=== PATIENT | female | born 1950 | race Caucasian/White ===

== ENCOUNTER 2021-10-16 04:02 | Day surgery (SDC) | payer OTHER ==
[2021-10-14 15:00] VITALS: BMI 32.0
[2021-10-16] MEDS ORDERED: DEXAMETHASONE SOD PHOSPHATE 10 MG/1 ML VIAL ONE (07:41)
[2021-10-16] MEDS ORDERED: LIDOCAINE HCL/PF 1% SDV 5ML VIAL ONE (07:41)
[2021-10-16 08:48] VITALS: TEMP 97.8
[2021-10-16] MEDS ORDERED: IOHEXOL 300 MG/ML INFUS..BTL IV ONE (12:18)
[2021-10-16] MEDS ORDERED: DEXAMETHASONE SOD PHOSPHATE 10 MG/1 ML VIAL IVPUSH ONE (12:19)
[2021-10-16] MEDS ORDERED: LIDOCAINE HCL 1% PRESERVATIVE FREE - 30ML VIAL IJ ONE (12:20)
[2021-10-16 13:12] VITALS: BP 143/62; PULSE 60
== END 2021-10-16 13:05 | disposition home or self-care (01) ==
LOC: JASU-SURG 04:02
PROVIDERS: ATTEND Pain Medicine Pain Medicine
PROC: 3E0R33Z Introduction of Anti-inflammatory into Spinal Canal, Percutaneous Approach (ICD-10-PCS; 2021-10-16)
PROC: B01BYZZ Fluoroscopy of Spinal Cord using Other Contrast (ICD-10-PCS; 2021-10-16)
PROC: 3E0R3BZ Introduction of Anesthetic Agent into Spinal Canal, Percutaneous Approach (ICD-10-PCS; principal; 2021-10-16 10:45)
DX: M54.16 Radiculopathy, lumbar region (principal)
CPT/HCPCS: 76000-TC-FY; J1100

== ENCOUNTER 2021-11-13 04:05 | Day surgery (SDC) | payer OTHER ==
[2021-11-10 11:54] VITALS: BMI 32.7
[2021-11-13] MEDS ORDERED: LIDOCAINE HCL 1% PRESERVATIVE FREE - 30ML VIAL IJ ONE ×2 (08:58→08:59)
[2021-11-13] MEDS ORDERED: BUPIVACAINE HCL/PF 0.5% (5MG/ML) 10 ML VIAL IJ ONE ×2 (08:58→08:59)
[2021-11-13] MEDS ORDERED: TRIAMCINOLONE ACETONIDE 40 MG/ML 10 ML VIAL IJ ONE (08:59)
[2021-11-13 09:39] VITALS: BP 147/62; PULSE 54; RESP 20; TEMP 97.8
== END 2021-11-13 09:45 | disposition home or self-care (01) ==
LOC: JASU-SURG 04:05
PROVIDERS: ATTEND Pain Medicine Pain Medicine
PROC: 3E0U3BZ Introduction of Anesthetic Agent into Joints, Percutaneous Approach (ICD-10-PCS; 2021-11-13)
PROC: 3E0U33Z Introduction of Anti-inflammatory into Joints, Percutaneous Approach (ICD-10-PCS; principal; 2021-11-13 08:45)
DX: M53.3 Sacrococcygeal disorders, not elsewhere classified (principal)
CPT/HCPCS: 76000-TC-FY

== ENCOUNTER 2022-01-22 03:57 | Day surgery (SDC) | payer OTHER ==
[2022-01-21 10:13] VITALS: BMI 32.7
[2022-01-22] MEDS ORDERED: LIDOCAINE HCL/PF 1% SDV 5ML VIAL ONE (07:12)
[2022-01-22] MEDS ORDERED: BUPIVACAINE HCL/PF 0.75% 10 ML VIAL ONE (07:12)
[2022-01-22] MEDS ORDERED: LIDOCAINE HCL 1% PRESERVATIVE FREE - 30ML VIAL IJ ONE (08:53)
[2022-01-22] MEDS ORDERED: BUPIVACAINE HCL/PF 0.75% 10 ML VIAL NR ONE (08:55)
[2022-01-22 11:00] VITALS: BP 140/61; PULSE 65; RESP 20; TEMP 97.8
== END 2022-01-22 09:20 | disposition home or self-care (01) ==
LOC: JASU-SURG 03:57
PROVIDERS: ATTEND Pain Medicine Pain Medicine
PROC: BR16YZZ Fluoroscopy of Lumbar Facet Joint(s) using Other Contrast (ICD-10-PCS; 2022-01-22)
PROC: 3E0T3BZ Introduction of Anesthetic Agent into Peripheral Nerves and Plexi, Percutaneous Approach (ICD-10-PCS; principal; 2022-01-22 08:30)
DX: M47.816 Spondylosis without myelopathy or radiculopathy, lumbar region (principal); I10 Essential (primary) hypertension
CPT/HCPCS: 76000-TC-FY

== ENCOUNTER 2022-03-05 04:03 | Day surgery (SDC) | payer OTHER ==
[2022-03-04 11:09] VITALS: BMI 32.5
[2022-03-05] MEDS ORDERED: BUPIVACAINE HCL/PF 0.75% 10 ML VIAL ONE (07:40)
[2022-03-05] MEDS ORDERED: LIDOCAINE HCL/PF 1% SDV 5ML VIAL ONE (07:41)
[2022-03-05 08:54] VITALS: RESP 18
[2022-03-05] MEDS ORDERED: LIDOCAINE HCL 1% PRESERVATIVE FREE - 30ML VIAL IJ ONE (09:28)
[2022-03-05] MEDS ORDERED: BUPIVACAINE HCL/PF 0.75% 10 ML VIAL PNB ONE (09:29)
[2022-03-05 10:10] VITALS: BP 133/56; PULSE 68; TEMP 97.7
== END 2022-03-05 10:16 | disposition home or self-care (01) ==
LOC: JASU-SURG 04:03
PROVIDERS: ATTEND Pain Medicine Pain Medicine
PROC: BR16YZZ Fluoroscopy of Lumbar Facet Joint(s) using Other Contrast (ICD-10-PCS; 2022-03-05)
PROC: 3E0T3BZ Introduction of Anesthetic Agent into Peripheral Nerves and Plexi, Percutaneous Approach (ICD-10-PCS; principal; 2022-03-05 10:15)
DX: M47.816 Spondylosis without myelopathy or radiculopathy, lumbar region (principal)
CPT/HCPCS: 76000-TC-FY

== ENCOUNTER 2022-04-02 04:11 | Day surgery (SDC) | payer OTHER ==
[2022-03-26 08:31] VITALS: BMI 32.5
[~2022-04-02 04:11] MED LIST: BUPIVACAINE HCL/PF 0.75% 10 ML VIAL PNB ONE; LIDOCAINE HCL 1% PRESERVATIVE FREE - 30ML VIAL IJ ONE
[2022-04-02] MEDS ORDERED: LIDOCAINE HCL/PF 2% SDV 5ML VIAL ONE ×2 (07:23→10:10)
[2022-04-02] MEDS ORDERED: LIDOCAINE HCL/PF 1% SDV 5ML VIAL ONE (07:23)
[2022-04-02] MEDS ORDERED: BUPIVACAINE HCL/PF 0.75% 10 ML VIAL ONE (07:23)
[2022-04-02] MEDS ORDERED: DEXAMETHASONE SOD PHOSPHATE 10 MG/1 ML VIAL ONE (07:24)
[2022-04-02 08:41] VITALS: RESP 20
[2022-04-02] MEDS ORDERED: BUPIVACAINE HCL/PF 0.75% 10 ML VIAL PNB ONE ×2 (10:16)
[2022-04-02] MEDS ORDERED: LIDOCAINE HCL 1% PRESERVATIVE FREE - 30ML VIAL IJ ONE (10:17)
[2022-04-02] MEDS ORDERED: DEXAMETHASONE SOD PHOSPHATE 10 MG/1 ML VIAL IVPUSH ONE (10:17)
[2022-04-02 12:36] VITALS: BP 140/80; PULSE 69; TEMP 98
== END 2022-04-02 12:00 | disposition home or self-care (01) ==
LOC: JASU-SURG 04:11
PROVIDERS: ATTEND Pain Medicine Pain Medicine
PROC: BR16YZZ Fluoroscopy of Lumbar Facet Joint(s) using Other Contrast (ICD-10-PCS; 2022-04-02)
PROC: 3E0T3TZ Introduction of Destructive Agent into Peripheral Nerves and Plexi, Percutaneous Approach (ICD-10-PCS; principal; 2022-04-02 10:15)
DX: M47.816 Spondylosis without myelopathy or radiculopathy, lumbar region (principal)
CPT/HCPCS: 76000-TC-FY; J1100

== ENCOUNTER 2022-05-07 04:27 | Day surgery (SDC) | payer OTHER ==
[2022-05-03 14:28] VITALS: BMI 32.5
[2022-05-07] MEDS ORDERED: DEXAMETHASONE SOD PHOSPHATE 10 MG/1 ML VIAL ONE (07:30)
[2022-05-07] MEDS ORDERED: LIDOCAINE HCL/PF 1% SDV 5ML VIAL ONE (07:30)
[2022-05-07] MEDS ORDERED: LIDOCAINE HCL/PF 2% SDV 5ML VIAL ONE (07:30)
[2022-05-07] MEDS ORDERED: BUPIVACAINE HCL/PF 0.75% 10 ML VIAL ONE (07:30)
[2022-05-07 11:31] VITALS: BP 165/51; PULSE 18; RESP 53; TEMP 96.9
== END 2022-05-07 11:43 | disposition home or self-care (01) ==
LOC: JASU-SURG 04:27
PROVIDERS: ATTEND Pain Medicine Pain Medicine
PROC: 005Y3ZZ Destruction of Lumbar Spinal Cord, Percutaneous Approach (ICD-10-PCS; principal; 2022-05-07 10:40)
DX: M47.816 Spondylosis without myelopathy or radiculopathy, lumbar region (principal)
CPT/HCPCS: 76000-TC-FY; J1100

== ENCOUNTER 2024-07-05 07:04 | Day surgery (SDC) | payer OTHER ==
[2024-07-03 10:07] VITALS: BMI 32.9
[2024-07-05] MEDS ORDERED: ACETAMINOPHEN 500 MG TABLET (FP) PO PRN (08:47)
[2024-07-05 10:38] VITALS: TEMP 97.7
[2024-07-05] MEDS: BUPIVACAINE HCL/PF 0.5% (5MG/ML) 10 ML VIAL IJ ONE ×2 (11:45)
[2024-07-05] MEDS: TRIAMCINOLONE ACETONIDE 40 MG/ML 10 ML VIAL IJ ONE ×2 (11:46)
[2024-07-05] MEDS: LIDOCAINE HCL 1% PRESERVATIVE FREE - 30ML VIAL IJ ONE ×2 (11:46)
[2024-07-05] MEDS: IOHEXOL 180 MG/1 ML ML IJ ONE ×2 (11:46)
[2024-07-05] MEDS: DEXAMETHASONE SOD PHOSPHATE 10 MG/1 ML VIAL IVPUSH ONE (11:46)
[2024-07-05 12:04] VITALS: BP 140/55; PULSE 59; RESP 18
== END 2024-07-05 12:25 | disposition home or self-care (01) ==
LOC: JASU-SURG 07:04
PROVIDERS: ATTEND Pain Medicine Pain Medicine
PROC: 3E0U3BZ Introduction of Anesthetic Agent into Joints, Percutaneous Approach (ICD-10-PCS; 2024-07-05)
PROC: 3E0U33Z Introduction of Anti-inflammatory into Joints, Percutaneous Approach (ICD-10-PCS; principal; 2024-07-05 11:45)
DX: M53.3 Sacrococcygeal disorders, not elsewhere classified (principal)
CPT/HCPCS: 76000-TC-FY; J1100

== ENCOUNTER 2024-09-27 07:27 | Day surgery (SDC) | payer OTHER ==
[2024-09-26 12:01] VITALS: BMI 32.9
[2024-09-27] MEDS ORDERED: LIDOCAINE HCL/PF 1% SDV 5ML VIAL ONE (07:36)
[2024-09-27] MEDS ORDERED: DEXAMETHASONE SOD PHOSPHATE 10 MG/1 ML VIAL ONE (07:37)
[2024-09-27] MEDS ORDERED: ACETAMINOPHEN 500 MG TABLET (FP) PO PRN (08:30)
[2024-09-27 08:51] VITALS: RESP 16; TEMP 97.6
[2024-09-27] MEDS: LIDOCAINE HCL 1% PRESERVATIVE FREE - 30ML VIAL IJ ONE (09:49)
[2024-09-27] MEDS: IOHEXOL 180 MG/1 ML ML IJ ONE (09:53)
[2024-09-27] MEDS: DEXAMETHASONE SOD PHOSPHATE 10 MG/1 ML VIAL IM ONE ×2 (09:59)
[2024-09-27 10:20] VITALS: BP 144/73; PULSE 57
== END 2024-09-27 10:31 | disposition home or self-care (01) ==
LOC: JASU-SURG 07:27
PROVIDERS: ATTEND Pain Medicine Pain Medicine
PROC: 3E0R3BZ Introduction of Anesthetic Agent into Spinal Canal, Percutaneous Approach (ICD-10-PCS; 2024-09-27)
PROC: 3E0R33Z Introduction of Anti-inflammatory into Spinal Canal, Percutaneous Approach (ICD-10-PCS; principal; 2024-09-27 10:30)
DX: M54.16 Radiculopathy, lumbar region (principal)
CPT/HCPCS: 76000-TC-FY; J1100